=== PATIENT | male | born 1950 | race African-American/Black ===

== ENCOUNTER 2018-08-22 07:36 | Outpatient (CLI) | payer OTHER ==
[2018-08-22 07:56] LABS: CREATININE 1.3 mg/dL (0.6-1.2)
== END 2018-08-22 07:37 | disposition home or self-care (01) ==
LOC: LAB 07:36
PROVIDERS: ATTEND Nurse Practitioner Gerontology
DX: E11.9 Type 2 diabetes mellitus without complications (principal); N28.9 Disorder of kidney and ureter, unspecified
CPT/HCPCS: 36415; 82565